=== PATIENT | female | born 1975 | race American Indian/Alaskan Native ===

== ENCOUNTER 2017-05-10 07:41 | Outpatient (CLI) | payer MEDICAID ==
--- NOTE | 2017-05-10 08:55 | Magnetic Resonance Report ---
MRI of the brain without contrast. History: Vertigo. Procedure: Routine brain protocol. Findings: The posterior fossa is normal. The seventh eighth nerve complexes appear symmetrical. The ventricles are normal in size and contour. There are no masses or extra-axial collections. The becker-white matter junction appears normal. There is no restricted diffusion. The pituitary gland appears normal. The cerebellar tonsils are in normal position. The visualized extracranial structures appear normal. Impression: Normal study.
== END 2017-05-10 07:42 | disposition home or self-care (01) ==
LOC: MRI 07:41
PROVIDERS: ATTEND Psychiatry & Neurology Neurology
DX: H81.43 Vertigo of central origin, bilateral (principal)
CPT/HCPCS: 70551